=== PATIENT | male | born 1965 | race Asian ===

== ENCOUNTER 2018-10-22 10:33 | Emergency (ER) | payer BC ==
[~2018-10-22] VITALS: Ht 172.7 cm; Wt 86.2 kg
[2018-10-22 10:33] VITALS: BP_SYST 126
--- NOTE | 2018-10-22 10:33 | NUR ---
BROUGHT BACK TO BED #8 AND TRIAGED. REPORT GIVEN TO NADINE
--- NOTE | 2018-10-22 10:50 | NUR ---
PATIENT CAME IN COMPLAINING OF RIGHT WRIST PAIN 8/10 FROM FALL LAST NIGHT. PATIENT SAID HE WAS DOING SPRINTS AND FELL. PATIENT ALSO COMPLAINING OF PAIN 8/10 IN LEFT HAMSTRING. PATIENT STATES IT IS TENDER WITH SOME SPASMS AND SHARP PAIN. PATIENT STATES HE TOOK TYLENOL AND ADVIL WITH MINIMAL RELIEF. PATIENT DENIES HITTING HEAD. PATIENT NOT COMPLAINING OF SOB. PATIENT ALERT AND ORIENTED X4.
--- NOTE | 2018-10-22 11:00 | NUR ---
YAJAIRA PEREZ at bedside examining patient.
[2018-10-22] MEDS ORDERED: DIPH-TET-PERTUS Vaccine 0.5 ML VIAL (ADACEL) I.M. ONE (12:00)
[2018-10-22 12:05] VITALS: BP_SYST 122
--- NOTE | 2018-10-22 12:07 | NUR ---
Patient given written and verbal discharge instructions and verbalizes understanding. ER MD discussed with patient the results and treatment provided. Patient in stable condition. ID arm band removed. Rx of Ibuprofen and Flexeril given. Patient educated on pain management and to follow up with PMD. Pain Scale 3/10 tolerable for patient . Opportunity for questions provided and answered. Medication side effect fact sheet provided.
== END 2018-10-22 12:07 | disposition home or self-care (01) ==
LOC: SED 10:33
DX: S63.501A Unspecified sprain of right wrist, initial encounter (principal); S76.312A Strain of muscle, fascia and tendon of the posterior muscle group at thigh level, left thigh, initial encounter; W19.XXXA Unspecified fall, initial encounter; Y93.02 Activity, running; Y92.89 Other specified places as the place of occurrence of the external cause; Y99.8 Other external cause status
CPT/HCPCS: 90715; 99283